=== PATIENT | female | born 1945 | race Two or more races ===

== ENCOUNTER 2017-05-17 07:40 | Outpatient (CLI) | payer OTHER ==
[~2017-05-17 07:40] MED LIST: DICLOFENAC SODI75 MG PO; GABAPENTIN800 MG PO; PREVACID15 MG; PRILOSEC10 MG PO; SIMVASTATIN5 MG; VENTIL; ZANTAC300 MG
== END 2017-05-17 07:45 | disposition home or self-care (01) ==
LOC: LAB 07:40
DX: E78.2 Mixed hyperlipidemia (principal); E11.65 Type 2 diabetes mellitus with hyperglycemia

== ENCOUNTER 2017-06-27 07:29 | Outpatient (CLI) | payer OTHER | END 2017-06-27 07:36 | disposition home or self-care (01) | LOC: LAB 07:29 | DX: E11.65 Type 2 diabetes mellitus with hyperglycemia (principal); N39.0 Urinary tract infection, site not specified; R82.79 Other abnormal findings on microbiological examination of urine ==

== ENCOUNTER 2017-09-24 07:23 | Outpatient (CLI) | payer OTHER | END 2017-09-24 07:41 | disposition home or self-care (01) | LOC: LAB 07:23 | DX: E11.65 Type 2 diabetes mellitus with hyperglycemia (principal); D68.8 Other specified coagulation defects; D64.89 Other specified anemias; E03.8 Other specified hypothyroidism; E78.2 Mixed hyperlipidemia ==

== ENCOUNTER 2017-09-26 07:20 | Outpatient (CLI) | payer OTHER | END 2017-09-26 07:33 | disposition home or self-care (01) | LOC: LAB 07:20 | DX: Z12.0 Encounter for screening for malignant neoplasm of stomach (principal); Z12.11 Encounter for screening for malignant neoplasm of colon; T36.91XA Poisoning by unspecified systemic antibiotic, accidental (unintentional), initial encounter ==

== ENCOUNTER 2018-04-24 11:36 | Outpatient (CLI) | payer OTHER | END 2018-04-24 15:14 | disposition home or self-care (01) | LOC: RAD 11:36 | DX: J45.998 Other asthma (principal) ==

== ENCOUNTER 2018-07-23 10:23 | Outpatient (CLI) | payer OTHER | END 2018-07-23 17:00 | disposition home or self-care (01) | LOC: MRI 10:23 | DX: D33.3 Benign neoplasm of cranial nerves (principal); H90.3 Sensorineural hearing loss, bilateral | CPT/HCPCS: 70480; 70553; A9575 ==

== ENCOUNTER 2019-02-24 07:11 | Outpatient (CLI) | payer OTHER | END 2019-02-24 07:20 | disposition home or self-care (01) | LOC: LAB 07:11 | DX: D68.8 Other specified coagulation defects (principal); H25.011 Cortical age-related cataract, right eye; Z98.41 Cataract extraction status, right eye ==

== ENCOUNTER 2019-04-10 18:52 | Inpatient (IN) | payer OTHER ==
[~2019-04-10] VITALS: Ht 198.1 cm; Wt 81.6 kg
== END 2019-04-16 13:49 | disposition home or self-care (01) | DRG 372 ==
LOC: ER 18:52 → SURH 04-11 09:49 → SEC-K 04-11 09:49 → SURH 04-11 23:09
PROVIDERS: ADMIT Internal Medicine
PROC: 8E0ZXY6 Isolation (ICD-10-PCS; principal; 2019-04-11)
DX: A04.72 Enterocolitis due to Clostridium difficile, not specified as recurrent (principal); J44.1 Chronic obstructive pulmonary disease with (acute) exacerbation; E86.0 Dehydration; E87.8 Other disorders of electrolyte and fluid balance, not elsewhere classified

== ENCOUNTER 2019-06-05 07:25 | Outpatient (CLI) | payer OTHER | END 2019-06-05 07:33 | disposition home or self-care (01) | LOC: LAB 07:25 | DX: D64.89 Other specified anemias (principal); M15.8 Other polyosteoarthritis; D50.8 Other iron deficiency anemias; N39.0 Urinary tract infection, site not specified; Z13.89 Encounter for screening for other disorder; D51.8 Other vitamin B12 deficiency anemias; E55.9 Vitamin D deficiency, unspecified; E67.3 Hypervitaminosis D; E72.11 Homocystinuria; K77 Liver disorders in diseases classified elsewhere; E03.8 Other specified hypothyroidism; E78.2 Mixed hyperlipidemia; N08 Glomerular disorders in diseases classified elsewhere; I26.99 Other pulmonary embolism without acute cor pulmonale; Z12.11 Encounter for screening for malignant neoplasm of colon; A04.72 Enterocolitis due to Clostridium difficile, not specified as recurrent; E11.65 Type 2 diabetes mellitus with hyperglycemia ==

== ENCOUNTER 2019-06-06 09:20 | Outpatient (CLI) | payer OTHER | END 2019-06-06 09:25 | disposition home or self-care (01) | LOC: LAB 09:20 | DX: D64.89 Other specified anemias (principal); M15.8 Other polyosteoarthritis; D50.8 Other iron deficiency anemias; N39.0 Urinary tract infection, site not specified; Z13.89 Encounter for screening for other disorder; D51.8 Other vitamin B12 deficiency anemias; E55.9 Vitamin D deficiency, unspecified; E67.3 Hypervitaminosis D; E72.11 Homocystinuria; K77 Liver disorders in diseases classified elsewhere; E03.8 Other specified hypothyroidism; E78.2 Mixed hyperlipidemia; N08 Glomerular disorders in diseases classified elsewhere; E11.9 Type 2 diabetes mellitus without complications; I26.99 Other pulmonary embolism without acute cor pulmonale; Z12.11 Encounter for screening for malignant neoplasm of colon; E11.65 Type 2 diabetes mellitus with hyperglycemia; A04.72 Enterocolitis due to Clostridium difficile, not specified as recurrent ==

== ENCOUNTER 2020-05-24 09:47 | Outpatient (CLI) | payer OTHER | END 2020-05-24 09:52 | disposition home or self-care (01) | LOC: RAD 09:47 | PROVIDERS: ATTEND Specialist | DX: J45.998 Other asthma (principal) ==

== ENCOUNTER 2020-08-31 13:05 | Outpatient (CLI) | payer OTHER | END 2020-08-31 13:15 | disposition home or self-care (01) | LOC: TOM 13:05 | PROVIDERS: ATTEND Specialist | DX: U07.1 COVID-19 (principal); J12.82 Pneumonia due to coronavirus disease 2019; J47.1 Bronchiectasis with (acute) exacerbation; J41.0 Simple chronic bronchitis ==

== ENCOUNTER 2020-09-13 08:35 | Outpatient (CLI) | payer OTHER | END 2020-09-14 13:04 | disposition home or self-care (01) | LOC: NUCLEAR 08:35 | PROVIDERS: ATTEND Specialist | DX: I82.403 Acute embolism and thrombosis of unspecified deep veins of lower extremity, bilateral (principal) ==

== ENCOUNTER 2020-10-07 11:21 | Inpatient (IN) | payer OTHER ==
[~2020-10-07] VITALS: Ht 167.6 cm; Wt 90.7 kg
[2020-10-07] MEDS ORDERED: PEPCID AC10 MG (12:52)
[2020-10-07] MEDS ORDERED: AMITRIPTYLINE H10 MG PO (12:53)
[2020-10-07] MEDS ORDERED: ZYPREXA2.5 MG PO (12:53)
[2020-10-07] MEDS ORDERED: MELATONIN10 M5 PO (12:53)
[2020-10-07] MEDS ORDERED: LIPITOR40 M1 (12:53)
[2020-10-07] MEDS ORDERED: CLONAZEPAM2 MG (12:54)
[2020-10-07] MEDS ORDERED: HYDROCHLOROTHIA25 MG PO (12:54)
[2020-10-07] MEDS ORDERED: ABATINEX680 MG PO (12:54)
[2020-10-07] MEDS ORDERED: ORTHO DF 3,7751 EACH PO (12:55)
== END 2020-10-15 21:43 | disposition home or self-care (01) | DRG 192 ==
LOC: ER 11:21 → SEC-K 17:09 → MEDJ 22:43
PROVIDERS: ADMIT Specialist; ATTEND Specialist
PROC: 4A033R1 Measurement of Arterial Saturation, Peripheral, Percutaneous Approach (ICD-10-PCS; 2020-10-07)
PROC: 3E0F7SF Introduction of Other Gas into Respiratory Tract, Via Natural or Artificial Opening (ICD-10-PCS; 2020-10-07)
PROC: B24BZZZ Ultrasonography of Heart with Aorta (ICD-10-PCS; principal; 2020-10-08)
PROC: 4A12X4Z Monitoring of Cardiac Electrical Activity, External Approach (ICD-10-PCS; 2020-10-12)
DX: J44.1 Chronic obstructive pulmonary disease with (acute) exacerbation (principal); I10 Essential (primary) hypertension; F17.290 Nicotine dependence, other tobacco product, uncomplicated; R74.8 Abnormal levels of other serum enzymes; F32.9 Major depressive disorder, single episode, unspecified

== ENCOUNTER 2021-01-20 09:20 | Outpatient (CLI) | payer OTHER ==
[~2021-01-20 09:20] MED LIST changes: +ABATINEX680 MG PO; +AMITRIPTYLINE H10 MG PO; +CLONAZEPAM2 MG; +HYDROCHLOROTHIA25 MG PO; +LIPITOR40 M1; +MELATONIN10 M5 PO; +ORTHO DF 3,7751 EACH PO; +PEPCID AC10 MG; +ZYPREXA2.5 MG PO
== END 2021-01-20 09:30 | disposition home or self-care (01) ==
LOC: PPH VACUNA 09:20
PROVIDERS: ATTEND Emergency Medicine Pediatric Emergency Medicine
DX: Z23 Encounter for immunization (principal)

== ENCOUNTER 2021-04-04 10:22 | Outpatient (CLI) | payer OTHER | END 2021-04-04 10:30 | disposition home or self-care (01) | LOC: RAD 10:22 | PROVIDERS: ATTEND Specialist | DX: I10 Essential (primary) hypertension (principal); M25.551 Pain in right hip; M25.511 Pain in right shoulder; M25.561 Pain in right knee ==

== ENCOUNTER 2021-04-06 10:11 | Outpatient (CLI) | payer OTHER | END 2021-04-06 10:20 | disposition home or self-care (01) | LOC: SONOGRAMA 10:11 | PROVIDERS: ATTEND Specialist | DX: M25.511 Pain in right shoulder (principal); M65.811 Other synovitis and tenosynovitis, right shoulder ==

== ENCOUNTER 2021-06-02 13:03 | Outpatient (CLI) | payer OTHER | END 2021-06-02 13:13 | disposition home or self-care (01) | LOC: SONOGRAMA 13:03 | PROVIDERS: ATTEND Specialist | DX: K70.0 Alcoholic fatty liver (principal); K75.89 Other specified inflammatory liver diseases; N28.89 Other specified disorders of kidney and ureter ==

== ENCOUNTER 2021-06-03 07:37 | Outpatient (CLI) | payer OTHER | END 2021-06-03 07:43 | disposition home or self-care (01) | LOC: LAB 07:37 | PROVIDERS: ATTEND Specialist | DX: D64.89 Other specified anemias (principal); Z12.11 Encounter for screening for malignant neoplasm of colon; E11.65 Type 2 diabetes mellitus with hyperglycemia; J45.998 Other asthma; A04.71 Enterocolitis due to Clostridium difficile, recurrent ==

== ENCOUNTER 2021-06-08 07:56 | Outpatient (CLI) | payer OTHER | END 2021-06-08 08:04 | disposition home or self-care (01) | LOC: LAB 07:56 | PROVIDERS: ATTEND Specialist | DX: C22.0 Liver cell carcinoma (principal) ==

== ENCOUNTER 2021-08-23 08:00 | Outpatient (CLI) | payer OTHER | END 2021-08-23 08:30 | disposition home or self-care (01) | LOC: PPH VACUNA 08:00 | PROVIDERS: ATTEND Emergency Medicine Pediatric Emergency Medicine | DX: Z23 Encounter for immunization (principal) ==

== ENCOUNTER 2021-09-07 07:59 | Outpatient (CLI) | payer OTHER | END 2021-09-07 08:13 | disposition home or self-care (01) | LOC: LAB 07:59 | PROVIDERS: ATTEND Specialist | DX: E03.9 Hypothyroidism, unspecified (principal); N39.0 Urinary tract infection, site not specified; E78.2 Mixed hyperlipidemia; E11.65 Type 2 diabetes mellitus with hyperglycemia; Z12.11 Encounter for screening for malignant neoplasm of colon; D64.9 Anemia, unspecified; K75.81 Nonalcoholic steatohepatitis (NASH) ==

== ENCOUNTER 2021-09-26 09:48 | Outpatient (CLI) | payer OTHER | END 2021-09-26 09:59 | disposition home or self-care (01) | LOC: RAD 09:48 | PROVIDERS: ATTEND Physical Medicine & Rehabilitation | DX: M25.561 Pain in right knee (principal) ==

== ENCOUNTER 2022-02-28 13:39 | Outpatient (CLI) | payer OTHER | END 2022-02-28 13:40 | disposition home or self-care (01) | LOC: LAB 13:39 | PROVIDERS: ATTEND Specialist | DX: J44.9 Chronic obstructive pulmonary disease, unspecified (principal); J84.115 Respiratory bronchiolitis interstitial lung disease; Z99.81 Dependence on supplemental oxygen ==

== ENCOUNTER 2022-06-07 08:17 | Outpatient (CLI) | payer OTHER | END 2022-06-07 08:27 | disposition home or self-care (01) | LOC: TOM 08:17 | PROVIDERS: ATTEND Specialist | DX: J47.1 Bronchiectasis with (acute) exacerbation (principal) ==

== ENCOUNTER 2022-07-25 08:22 | Outpatient (CLI) | payer OTHER | END 2022-07-25 09:04 | disposition home or self-care (01) | LOC: LAB 08:22 | PROVIDERS: ATTEND Specialist | DX: K52.89 Other specified noninfective gastroenteritis and colitis (principal); A04.72 Enterocolitis due to Clostridium difficile, not specified as recurrent ==

== ENCOUNTER 2022-08-03 14:00 | Outpatient (CLI) | payer OTHER | END 2022-08-03 14:04 | disposition home or self-care (01) | LOC: RAD 14:00 | PROVIDERS: ATTEND Internal Medicine Gastroenterology | DX: R10.9 Unspecified abdominal pain (principal) ==

== ENCOUNTER → 2022-12-29 | Outpatient (CLI) | payer OTHER | END | disposition home or self-care (01) | LOC: NUCLEAR 12-19 07:00 | PROVIDERS: ATTEND Internal Medicine | DX: R06.9 Unspecified abnormalities of breathing (principal); E78.2 Mixed hyperlipidemia | CPT/HCPCS: 78452; 93017; A9500; J1250 ==

== ENCOUNTER 2023-03-08 08:01 | Outpatient (CLI) | payer OTHER | END 2023-03-08 08:02 | disposition home or self-care (01) | LOC: NUCLEAR 08:01 | PROVIDERS: ATTEND Specialist | DX: I82.409 Acute embolism and thrombosis of unspecified deep veins of unspecified lower extremity (principal) ==

== ENCOUNTER → 2023-12-14 08:04 | Outpatient (CLI) | payer OTHER | END | disposition home or self-care (01) | LOC: NUCLEAR 08:04 | PROVIDERS: ATTEND Internal Medicine | DX: I50.9 Heart failure, unspecified (principal); I27.20 Pulmonary hypertension, unspecified ==

== ENCOUNTER 2024-02-22 13:13 | Inpatient (IN) | payer OTHER ==
[~2024-02-22] VITALS: Ht 167.6 cm; Wt 95.3 kg
[2024-02-22] MEDS ORDERED: MONTELUKAST SODI1 GM MC (13:39)
[2024-02-22] MEDS ORDERED: PROTONIX40 MG PO (13:40)
[2024-02-22] MEDS ORDERED: ABANEU-SL TABL1 EACH SL (13:41)
[2024-02-22] MEDS ORDERED: LASIX20 MG PO (13:41)
[2024-02-22] MEDS ORDERED: HORIZANT300 MG PO (13:41)
[2024-02-22] MEDS ORDERED: DAFLONEX-XL 11300 MG PO (13:41)
[2024-02-22] MEDS ORDERED: GLIPIZIDE XL10 MG PO (13:42)
[2024-02-22] MEDS ORDERED: NORFLEX100MG PO (13:42)
--- NOTE | 2024-02-22 13:42 | NUR ---
PTE ALERTA Y ORIENTADA X3 EN COMPANIA DE FAMILIAR QUIEN REFIERE JEANNINE SIDO ENVIADA POR ORDEN MEDICA DEL DR. ALPHONSE BULLOCK PARA EVALUACION DE POSIBLE CELULITIS EN D[place] INDICE DERECHO. SE MIDEN SV Y SE UBICA.N
[2024-02-22] MEDS ORDERED: 0.9 % SODIUM CHLORIDE 1,000 ML IV SCH (14:45)
[2024-02-22] MEDS ORDERED: VANCOMYCIN HCL 1,000 MG VIAL IV SCH (14:45)
[2024-02-22] MEDS ORDERED: CEFTRIAXONE SODIUM 2,000 MG VIAL IV SCH (14:46)
[2024-02-22] MEDS ORDERED: DEXTROSE 50 % IN WATER 0.5 G/ML DISP.SYRIN IV PRN (15:00)
[2024-02-22] MEDS ORDERED: ORPHENADRINE CITRATE 100 MG TABLET PO PRN (15:00)
[2024-02-22] MEDS ORDERED: INSULIN LISPRO 1,000 UNIT/10 ML UNITS SUBCUTANEO PRN (15:00)
[2024-02-22 17:00] LABS: HEMATOCRIT 36.2 % (36.0-45.00); MEAN CORPUSCULAR HEMOGLOBIN 27.4 pg (27.00-32.0); PLATELET COUNT 393 K/uL (150-450); RED BLOOD COUNT 4.36 M/uL (4.00-6.00); RED CELL DISTRIBUTION WIDTH 15.9 % (11.5-14.5)
[2024-02-22] MEDS ORDERED: ALBUTEROL SULFATE 3 ML/2.5 MG AMPUL.NEB IH SCH (17:00)
[2024-02-22] MEDS ORDERED: ENOXAPARIN SODIUM 40 MG/0.4 ML SYRINGE SUBCUTANEO SCH (17:00)
[2024-02-22] MEDS ORDERED: LACTOBACILLUS ACIDOPHILUS 1 CAP CAP PO SCH (17:00)
[2024-02-22] MEDS ORDERED: ATORVASTATIN CALCIUM 40 MG TABLET PO SCH (17:00)
[2024-02-22] MEDS ORDERED: PATIENTS OWN MEDICATION (MEDICAMENTO EN PISO) IH SCH (17:00)
[2024-02-22 17:10] LABS: ERYTHROCYTE SEDIMENTATION RATE 23 mm/hr
[2024-02-22 17:17] LABS: CALCIUM 9.5 mg/dL (8.5-10.1); CREATININE SERUM 0.82 mg/dL (0.55-1.02); GFR 67.07; POTASSIUM 3.86 mEq/L (3.5-5.1)
[2024-02-22 17:24] LABS: C-REACTIVE PROTEIN 1.23 MG/DL (0.00-0.29)
[2024-02-22 17:29] VITALS: BP 135/59
[2024-02-22] MEDS ORDERED: TETANUS & DIPHTHERIA TOX,ADULT 0.5 ML VIAL IM ONE (18:30)
[2024-02-22 18:50] VITALS: BP 139/67; O2SAT 97
[2024-02-22] MEDS ORDERED: MONTELUKAST SODIUM 10 MG TABLET PO SCH (21:00)
[2024-02-22] MEDS ORDERED: GABAPENTIN 100 MG CAPSULE PO SCH (21:00)
[2024-02-22] MEDS ORDERED: CLONAZEPAM 1 MG TABLET PO SCH (21:00)
[2024-02-22] MEDS ORDERED: FAMOtidine 20 MG TABLET PO SCH (21:00)
[2024-02-23 00:40] VITALS: BP 143/77; O2SAT 95
[2024-02-23 08:00] VITALS: BP 120/57; O2SAT 97
[2024-02-23 08:42] LABS: ALBUMIN 2.8 gm/dL (3.4-5.0); BILIRUBIN TOTAL 0.43 mg/dL (0.3-1.2); CALCIUM 8.6 mg/dL (8.5-10.1); CREATININE SERUM 0.66 mg/dL (0.55-1.02); GFR 86.17; GLOBULINA 2.7 G/DL (2.4-3.5); MAGNESIUM 2.1 mg/dL (1.8-2.4); PHOSPHOROUS 4.1 mg/dL (2.5-4.9); POTASSIUM 4.04 mEq/L (3.5-5.1); TOTAL PROTEIN 5.5 gm/dL (6.4-8.2)
[2024-02-23] MEDS ORDERED: PANTOPRAZOLE SODIUM 40 MG TABLET.DR PO SCH (09:00)
[2024-02-23] MEDS ORDERED: FUROsemide 20 MG TABLET PO SCH (09:00)
[2024-02-23 09:12] LABS: HEMATOCRIT 32.6 % (36.0-45.00); MEAN CELL VOLUME 82.2 fL (80.00-100.00); MEAN CORPUSCULAR HEMOGLOBIN 27.8 pg (27.00-32.0); MEAN CORPUSCULAR HGB CONC 33.8 g/dl (32.0-36.0); PLATELET COUNT 322 K/uL (150-450); RED BLOOD COUNT 3.97 M/uL (4.00-6.00)
[2024-02-23 16:27] VITALS: BP 161/72; O2SAT 93
[2024-02-23 20:25] VITALS: BP 127/61; O2SAT 97
[2024-02-24 00:05] VITALS: BP 132/68; O2SAT 97
[2024-02-24 08:52] VITALS: BP 131/58; O2SAT 98
[2024-02-24 16:00] VITALS: BP 113/74; O2SAT 99
[2024-02-25] VITALS: BP 117/69; O2SAT 98
[2024-02-25 06:55] LABS: HEMATOCRIT 30.7 % (36.0-45.00); HEMOGLOBIN 10.5 g/dL (12.0-15.00); MEAN CORPUSCULAR HEMOGLOBIN 28.1 pg (27.00-32.0); MEAN CORPUSCULAR HGB CONC 34.2 g/dl (32.0-36.0); PLATELET COUNT 315 K/uL (150-450); RED BLOOD COUNT 3.75 M/uL (4.00-6.00); RED CELL DISTRIBUTION WIDTH 15.9 % (11.5-14.5)
[2024-02-25 07:35] LABS: CALCIUM 8.9 mg/dL (8.5-10.1); CREATININE SERUM 0.73 mg/dL (0.55-1.02); GFR 76.71; MAGNESIUM 1.9 mg/dL (1.8-2.4); PHOSPHOROUS 4.5 mg/dL (2.5-4.9); POTASSIUM 3.39 mEq/L (3.5-5.1)
[2024-02-25 07:39] LABS: C-REACTIVE PROTEIN 3.4 MG/DL (0.00-0.29)
[2024-02-25 08:00] VITALS: BP 126/55; O2SAT 95
[2024-02-25] MEDS ORDERED: POTASSIUM CHLORIDE 20MEQ/100ML H2O PB IV NR (11:00)
[2024-02-25 16:50] VITALS: BP 129/60; O2SAT 95
[2024-02-26 00:03] VITALS: BP 152/69; O2SAT 98
[2024-02-26 08:00] VITALS: BP 109/55; O2SAT 96
[2024-02-26] MEDS ORDERED: LINEZOLID600 MG PO (12:14)
[2024-02-26] MEDS ORDERED: LIPITOR40 M1 PO (12:14)
[2024-02-26] MEDS ORDERED: LASIX20 MG PO (12:14)
[2024-02-26] MEDS ORDERED: FAMOTIDINE20 MG PO (12:14)
[2024-02-26] MEDS ORDERED: ABATINEX680 MG PO (12:14)
[2024-02-26] MEDS ORDERED: PROTONIX40 MG PO (12:14)
[2024-02-26] MEDS ORDERED: CLONAZEPAM1 MG PO (12:14)
[2024-02-26] MEDS ORDERED: MONTELUKAST SOD10 MG PO (12:14)
[2024-02-26] MEDS ORDERED: ABANEU-SL TABL1 EACH SL (12:14)
[2024-02-26] MEDS ORDERED: GABAPENTIN100 MG PO (12:14)
== END 2024-02-26 14:37 | disposition home or self-care (01) | DRG 639 ==
LOC: ER 13:15 → SEC-K 16:02 → SURH 16:02
PROVIDERS: Internal Medicine Geriatric Medicine; ADMIT Specialist; ATTEND Specialist
PROC: BP3CZZZ Magnetic Resonance Imaging (MRI) of Right Hand/Finger Joint (ICD-10-PCS; principal; 2024-02-22)
PROC: 02HV33Z Insertion of Infusion Device into Superior Vena Cava, Percutaneous Approach (ICD-10-PCS; 2024-02-23)
PROC: 3E04329 Introduction of Other Anti-infective into Central Vein, Percutaneous Approach (ICD-10-PCS; 2024-02-23)
PROC: 3E0F7GC Introduction of Other Therapeutic Substance into Respiratory Tract, Via Natural or Artificial Opening (ICD-10-PCS; 2024-02-23)
DX: E11.628 Type 2 diabetes mellitus with other skin complications (principal); L03.011 Cellulitis of right finger; E11.51 Type 2 diabetes mellitus with diabetic peripheral angiopathy without gangrene; J44.9 Chronic obstructive pulmonary disease, unspecified; J84.10 Pulmonary fibrosis, unspecified; S61.23 Puncture wound without foreign body of finger without damage to nail; W27.8XXS Contact with other nonpowered hand tool, sequela; D64.89 Other specified anemias; E78.5 Hyperlipidemia, unspecified; I10 Essential (primary) hypertension; Z87.891 Personal history of nicotine dependence; Z79.84 Long term (current) use of oral hypoglycemic drugs; Z99.81 Dependence on supplemental oxygen
CPT/HCPCS: 73223

== ENCOUNTER 2024-08-04 08:02 | Outpatient (CLI) | payer OTHER ==
[~2024-08-04 08:02] MED LIST changes: +ABANEU-SL TABL1 EACH SL; +CLONAZEPAM1 MG PO; +DAFLONEX-XL 11300 MG PO; +FAMOTIDINE20 MG PO; +GABAPENTIN100 MG PO; +GLIPIZIDE XL10 MG PO; +HORIZANT300 MG PO; +LASIX20 MG PO; +LINEZOLID600 MG PO; +LIPITOR40 M1 PO; +MONTELUKAST SOD10 MG PO; +MONTELUKAST SODI1 GM MC; +NORFLEX100MG PO; +PROTONIX40 MG PO
== END 2024-08-04 08:07 | disposition home or self-care (01) ==
LOC: RAD 08:02
PROVIDERS: ATTEND Specialist
DX: J45.998 Other asthma (principal)

== ENCOUNTER → 2025-02-24 | Outpatient (CLI) | payer OTHER | END | disposition home or self-care (01) | LOC: TOM 02-23 13:19 | DX: K25.9 Gastric ulcer, unspecified as acute or chronic, without hemorrhage or perforation (principal); D64.9 Anemia, unspecified ==